=== PATIENT | female | born 2000 | race Caucasian/White ===

== ENCOUNTER → 2020-03-07 | Outpatient (REF) | payer BC ==
[2020-03-08 16:11] LABS: BASO % 0.3 % (0.0-1.0); EOS # 0.1 10^3/uL (0.0-0.5); EOS % 0.8 % (0.0-3.0); HEMATOCRIT 39.7 % (36.0-47.0); HEMOGLOBIN 12.9 g/dl (12.0-15.5); LYMPH # 1.8 10^3/uL (1.5-5.0); LYMPH % 27.1 % (24.0-44.0); MEAN CORPUSCULAR HEMOGLOBIN 30.9 pg (27.0-33.0); MEAN CORPUSCULAR HGB CONC 32.5 g/dl (32.0-36.5); MEAN CORPUSCULAR VOLUME 95.2 fl (80.0-96.0); MONO # 0.5 10^3/uL (0.0-0.8); MONO % 7.6 % (0.0-5.0); NEUTROPHILS # 4.1 10^3/uL (1.5-8.5); PLATELET COUNT, AUTOMATED 145 10^3/uL (150-450); RED BLOOD COUNT 4.17 10^6/uL (4.00-5.40); WHITE BLOOD COUNT 6.5 10^3/uL (4.0-10.0)
[2020-03-08 16:50] LABS: ALBUMIN 4.2 GM/DL (3.2-5.2); ALT/SGPT 17 U/L (12-78); BILIRUBIN,TOTAL 0.3 MG/DL (0.2-1.0); BLOOD UREA NITROGEN 9 MG/DL (7-18); CALCIUM LEVEL 9.2 MG/DL (8.5-10.1); CARBON DIOXIDE LEVEL 29 MEQ/L (21-32); CHLORIDE LEVEL 107 MEQ/L (98-107); CREATININE FOR GFR 0.88 MG/DL (0.55-1.30); GLOMERULAR FILTRATION RATE > 60.0 (>60); GLUCOSE, FASTING 75 MG/DL (70-100); POTASSIUM SERUM 4.8 MEQ/L (3.5-5.1); SODIUM LEVEL 141 MEQ/L (136-145); TOTAL PROTEIN 7.2 GM/DL (6.4-8.2)
[2020-03-09 09:23] LABS: TOTAL 25(OH) VITAMIN D 36.2 NG/ML (30.0-100.0)
== END ==
LOC: M SFHCADAM 15:31
PROVIDERS: ATTEND Family Medicine
DX: F32.9 Major depressive disorder, single episode, unspecified (principal); K59.00 Constipation, unspecified; Z00.00 Encounter for general adult medical examination without abnormal findings; E55.9 Vitamin D deficiency, unspecified

== ENCOUNTER → 2020-06-03 | Outpatient (REF) | payer BC | LOC: M SFHCADAM 12:54 | PROVIDERS: ATTEND Family Medicine | DX: N89.8 Other specified noninflammatory disorders of vagina (principal) ==

== ENCOUNTER → 2021-10-13 | Outpatient (REF) | payer BC ==
[2021-10-13 17:20] LABS: ALBUMIN 4.5 GM/DL (3.2-5.2); ALT/SGPT 24 U/L (12-78); BILIRUBIN,TOTAL 0.4 MG/DL (0.2-1.0); BLOOD UREA NITROGEN 10 MG/DL (7-18); CALCIUM LEVEL 9.6 MG/DL (8.5-10.1); CARBON DIOXIDE LEVEL 29 MEQ/L (21-32); CHLORIDE LEVEL 106 MEQ/L (98-107); CREATININE FOR GFR 0.58 MG/DL (0.55-1.30); FREE T4 0.87 NG/DL (0.76-1.46); GLOMERULAR FILTRATION RATE > 60.0 (>60); GLUCOSE, FASTING 75 MG/DL (70-100); POTASSIUM SERUM 4.2 MEQ/L (3.5-5.1); SODIUM LEVEL 141 MEQ/L (136-145); TOTAL PROTEIN 7.4 GM/DL (6.4-8.2)
== END ==
LOC: M SFHCADAM 11:32
PROVIDERS: ATTEND Family Medicine
DX: F41.8 Other specified anxiety disorders (principal)

== ENCOUNTER → 2022-12-17 | Outpatient (CLI) | payer BC ==
[~2022-12-17] MED LIST: PROHANCE 279.3MG/ML 15ML VIAL ONE
== END ==
LOC: M PLAIMG 07:43
PROVIDERS: ATTEND Otolaryngology
DX: H90.42 Sensorineural hearing loss, unilateral, left ear, with unrestricted hearing on the contralateral side (principal)
CPT/HCPCS: 70553; A9576

== ENCOUNTER → 2023-05-03 | Outpatient (REF) | payer BC | LOC: M LAB REF 11:41 | PROVIDERS: ATTEND Physician Assistant | DX: J02.9 Acute pharyngitis, unspecified (principal) ==

== ENCOUNTER → 2023-05-27 | Outpatient (CLI) | payer BC ==
[2023-05-27 11:28] LABS: THYROID STIMULATING HORMONE 1.095 uIU/ML (0.55-4.78)
[2023-05-27 11:29] LABS: PROLACTIN 11.65 NG/ML
[2023-05-27 11:31] LABS: FREE T4 1.1 NG/DL (0.89-1.76)
== END ==
LOC: M PLALAB 09:11
PROVIDERS: ATTEND Nurse Practitioner Family
DX: Z12.4 Encounter for screening for malignant neoplasm of cervix (principal); N64.3 Galactorrhea not associated with childbirth
CPT/HCPCS: 36415; 84146; 84439; 84443; G0123

== ENCOUNTER → 2023-12-24 | Outpatient (CLI) | payer BC | LOC: M PLAIMG 07:50 | PROVIDERS: ATTEND Nurse Practitioner | DX: D36.10 Benign neoplasm of peripheral nerves and autonomic nervous system, unspecified (principal) ==

== ENCOUNTER → 2024-01-09 | Outpatient (REF) | payer BC | LOC: M SFHCWAGY 17:14 | PROVIDERS: ATTEND Nurse Practitioner Family | DX: Z30.433 Encounter for removal and reinsertion of intrauterine contraceptive device (principal) ==

== ENCOUNTER → 2024-07-20 | Outpatient (CLI) | payer BC | LOC: M PLAIMG 12:15 | PROVIDERS: ATTEND Physician Assistant | DX: D36.10 Benign neoplasm of peripheral nerves and autonomic nervous system, unspecified (principal) | CPT/HCPCS: 70553; A9576 ==

== ENCOUNTER → 2025-02-16 | Outpatient (CLI) | payer OTHER | LOC: M PLAIMG 10:09 | PROVIDERS: ATTEND Physician Assistant | DX: D36.10 Benign neoplasm of peripheral nerves and autonomic nervous system, unspecified (principal) ==